=== PATIENT | female | born 1945 | race Caucasian/White ===

== ENCOUNTER 2017-10-27 11:09 | Outpatient (CLI) | payer MEDICARE, BC ==
--- NOTE | 2017-10-27 12:26 | RAD ---
FOUR VIEWS RIGHT KNEE: Indication: Twisted right knee one week ago with persistent right knee pain. FINDINGS: There is a moderate osteoarthrosis of the right knee with moderate medial femoral tibial joint compar tmental narrowing. There is osteophytes affecting all major compartments of the right knee. No joint capsular distention is evident. No acute fracture is demonstrated. IMPRESSION: Moderate osteoarthrosis of the right knee. POS: [facility]
== END 2017-10-27 11:10 | disposition home or self-care (01) ==
LOC: SCSRAD 11:09
PROVIDERS: ATTEND Family Medicine
DX: M25.561 Pain in right knee (principal); M17.11 Unilateral primary osteoarthritis, right knee